=== PATIENT | female | born 1955 | race Caucasian/White ===

== ENCOUNTER 2023-10-21 15:41 | Outpatient (CLI) | payer MEDICARE ==
[~2023-10-21] VITALS: Ht 157.5 cm; Wt 77.1 kg
[2023-10-21] MEDS ORDERED: albuterol 2.5 MG/3 ML nebule NEB ONE (16:20)
[2023-10-21 16:24] VITALS: PULSE 109; RESP 16; O2SAT 96
== END 2023-10-21 23:59 | disposition home or self-care (01) ==
LOC: RT 15:41
PROVIDERS: ATTEND Student in an Organized Health Care Education/Training Program
DX: R94.2 Abnormal results of pulmonary function studies (principal); R06.00 Dyspnea, unspecified; R06.09 Other forms of dyspnea; R05.8 Other specified cough; R06.2 Wheezing
CPT/HCPCS: 94060; 94760